=== PATIENT | male | born 1970 | race Caucasian/White ===

== ENCOUNTER 2016-11-01 20:23 | Observation (INO) | payer SELFPAY ==
[~2016-11-01] VITALS: Ht 170.2 cm; Wt 69.0 kg
[2016-11-01 23:05] VITALS: BP 118/83; PULSE 81; RESP 18; TEMP 99.9; O2SAT 100
[2016-11-01] MEDS ORDERED: SODIUM CHLOR 0.9% 1000 ML INJ 1,000 ML IV SCH (23:43)
--- NOTE | 2016-11-01 23:43 | PD ---
HPI Chief Complaint: Abdominal Pain Time Seen by Provider: 23:28 Travel History International Travel<30 days: No Contact w/Intl Traveler<30days: No Traveled to known affect area: No History of Present Illness HPI The patient is a 46-year-old male who complains of bilateral lower abdominal pain for 2 days associated with some nausea, vomiting and diarrhea. He denies any blood in the stool or vomitus. He denies any fever. He still has his appendix and gallbladder. He last ate some soup and watermelon at 5 PM. He does have a history of a brain tumor and gets frequent headaches. He is new to the area and does not have a local primary care physician. He does not have any insurance. He denies any history of bowel problems. [facility] Social History Tobacco Use: No Allergies-Medications (Allergen,Severity, Reaction): Coded Allergies: Codeine (Verified Allergy, Severe, Hallucinations, 11/01/16) Contrast Media (Verified Allergy, Severe, Cardiac Arrest, 11/02/16) Reported Meds & Prescriptions Reported Meds & Active Scripts Active Percocet (Oxycodone-Acetaminophen) 5-325 mg Tab 1 Tab PO Q4H PRN Reported Oxycodone (Oxycodone HCl) 5 Mg Tab 5 Mg PO Q4H PRN Fluoxetine (Fluoxetine HCl) 20 Mg Cap 20 Mg PO DAILY Gabapentin 800 Mg Tab 800 Mg PO HS Lamotrigine 100 Mg Tab 100 Mg PO BID Review of Systems Except as stated in HPI: all other systems reviewed are Neg Physical Exam Narrative GENERAL: The patient is alert, oriented 3 and slight apparent distress with his eye lateral lower quadrant abdominal discomfort. His vital signs are normal except for temperature 99.9. The patient is anxious. SKIN: Warm and dry. No skin rash is seen. HEAD: Atraumatic. Normocephalic. EYES: Pupils equal and round. No scleral icterus. No injection or drainage. ENT: No nasal bleeding or discharge. Mucous membranes pink and moist. NECK: Trachea midline. No JVD. CARDIOVASCULAR: Regular rate and rhythm. No murmur appreciated. RESPIRATORY: No accessory muscle use. Clear to auscultation. Breath sounds equal bilaterally. GASTROINTESTINAL: Abdomen shows guarding in the bilateral lower quadrants, and bilateral lower quadrant tenderness, nondistended. Hepatic and splenic margins not palpable. MUSCULOSKELETAL: No obvious deformities. No clubbing. No cyanosis. No edema. NEUROLOGICAL: Awake and alert. No obvious cranial nerve deficits. Motor grossly within normal limits. Normal speech. PSYCHIATRIC: Appropriate mood and affect except that the patient is anxious; insight and judgment normal. Data Data Last Documented VS Vital Signs Date Time Temp Pulse Resp B/P Pulse Ox O2 Delivery O2 Flow Rate FiO2 11/01/16 23:05 99.9 81 18 118/83 100 Orders Complete Blood Count With Diff (11/01/16 23:43) Comprehensive Metabolic Panel (11/01/16 23:43) Lipase (11/01/16 23:43) Urinalysis - C+S If Indicated (11/01/16 23:43) Iv Access Insert/Monitor (11/01/16 23:43) Ecg Monitoring (11/01/16 23:43) Oximetry (11/01/16 23:43) Morphine Inj (Morphine Inj) (11/01/16 23:45) Ondansetron Inj (Zofran Inj) (11/01/16 23:45) Sodium Chlor 0.9% 1000 Ml Inj (Ns 1000 M (11/01/16 23:43) Sodium Chloride 0.9% Flush (Ns Flush) (11/01/16 23:45) Ct Abd/Pel W/O Iv Contrast (11/01/16 23:59) Hydromorphone Pf Inj (Dilaudid Pf Inj) (11/02/16 00:45) Ondansetron Inj (Zofran Inj) (11/02/16 00:45) Electrocardiogram (11/02/16 00:46) Prothrombin Time / Inr (Pt) (11/02/16 00:47) Act Partial Throm Time (Ptt) (11/02/16 00:47) Admit Order (Ed Use Only) (11/02/16 00:54) Labs Laboratory Tests Test 11/02/16 00:20 White Blood Count 20.3 TH/MM3 Red Blood Count 4.84 MIL/MM3 Hemoglobin 15.8 GM/DL Hematocrit 45.7 % Mean Corpuscular Volume 94.4 FL Mean Corpuscular Hemoglobin 32.5 PG Mean Corpuscular Hemoglobin 34.5 % Concent Red Cell Distribution Width 13.0 % Platelet Count 242 TH/MM3 Mean Platelet Volume 8.9 FL Neutrophils (%) (Auto) 77.9 % Lymphocytes (%) (Auto) 12.0 % Monocytes (%) (Auto) 7.5 % Eosinophils (%) (Auto) 0.1 % Basophils (%) (Auto) 2.5 % Neutrophils # (Auto) 15.9 TH/MM3 Lymphocytes # (Auto) 2.4 TH/MM3 Monocytes # (Auto) 1.5 TH/MM3 Eosinophils # (Auto) 0.0 TH/MM3 Basophils # (Auto) 0.5 TH/MM3 CBC Comment AUTO DIFF Differential Total Cells 100 Counted Neutrophils % (Manual) 69 % Band Neutrophils % 10 % Lymphocytes % 13 % Monocytes % 8 % Neutrophils # (Manual) 16.0 TH/MM3 Differential Comment FINAL DIFF MANUAL Platelet Estimate NORMAL Platelet Morphology Comment NORMAL Red Cell Morphology Comment NORMAL Prothrombin Time 11.2 SEC Prothromb Time International 1.0 RATIO Ratio Activated Partial 27.8 SEC Thromboplast Time Urine Color YELLOW Urine Turbidity CLEAR Urine pH 6.5 Urine Specific [place] 1.005 Urine Protein NEG mg/dL Urine Glucose (UA) NEG mg/dL Urine Ketones TRACE mg/dL Urine Occult Blood NEG Urine Nitrite NEG Urine Bilirubin NEG Urine Leukocyte Esterase TRACE Urine RBC 0-2 /hpf Urine WBC 0-2 /hpf Urine Squamous Epithelial 0-5 /hpf Cells Urine Bacteria NONE /hpf Microscopic Urinalysis Comment CULT NOT INDICATED Sodium Level 137 MEQ/L Potassium Level 3.4 MEQ/L Chloride Level 100 MEQ/L Carbon Dioxide Level 28.1 MEQ/L Anion Gap 9 MEQ/L Blood Urea Nitrogen 8 MG/DL Creatinine 0.99 MG/DL Estimat Glomerular Filtration 81 ML/MIN Rate Random Glucose 114 MG/DL Calcium Level 9.6 MG/DL Total Bilirubin 1.3 MG/DL Aspartate Amino Transf 13 U/L (AST/SGOT) Alanine Aminotransferase 32 U/L (ALT/SGPT) Alkaline Phosphatase 97 U/L Total Protein 7.9 GM/DL Albumin 4.0 GM/DL Lipase 69 U/L [facility] Medical Decision Making Medical Screen Exam Complete: Yes Emergency Medical Condition: Yes Medical Record Reviewed: Yes Interpretation(s) The EKG is normal with a normal sinus rhythm rate of 74. The CT abdomen/pelvis without IV contrast shows acute appendicitis without abscess formation. Differential Diagnosis Colitis, acute appendicitis, gastroenteritis, electrolyte disorder, diverticulitis, acute appendicitis with abscess formation Narrative Course The patient has acute appendicitis without abscess formation. Plan: The patient will be admitted to Dr. Siegel at [facility] in [facility]. Scripts Oxycodone-Acetaminophen (Percocet)5-325 mg Tab1 Tab PO Q4H PRN (PAIN) #20 TAB Ref 0 Prov:Kaz Siegel MD 11/02/16 Luis Sneed MD Nov 01, 2016 23:43
[2016-11-01] MEDS ORDERED: ONDANSETRON HCL 4 MG/2 ML VIAL IVP ONE (23:45)
[2016-11-01] MEDS ORDERED: SODIUM CHLORIDE 0.9% FLUSH 5 ML FLUSH IVF PRN (23:45)
[2016-11-01] MEDS ORDERED: MORPHINE SULFATE 4 MG/ML INJ IV PUSH ONE (23:45)
--- NOTE | 2016-11-02 00:32 | RADHPO ---
EXAM DATE/TIME: 11/02/2016 00:03 [place] COMPARISON: No previous studies available for comparison. INDICATIONS : Lower abdomen pain for two days. Evaluate appendix. ORAL CONTRAST: No oral contrast ingested. RADIATION DOSE: 8.90 CTDIvol (mGy) MEDICAL HISTORY : None SURGICAL HISTORY : None. ENCOUNTER: Initial ACUITY: 2 days PAIN SCALE: 8/10 LOCATION: Bilateral lower quadrant abdomen TECHNIQUE: Volumetric scanning of the abdomen and pelvis was performed. Using automated exposure control and ad justment of the mA and/or kV according to patient size, radiation dose was kept as low as reasonably achievable to obtain optimal diagnostic quality images. FINDINGS: Examination of the lung bases demonstrates no abnormality. No pleural fluid is identified. No pulmona ry nodules are present. The liver and spleen are normal in size and no focal defects are identified. The gallbladder and pancreas are unremarkable. No intrahepatic or extrahepatic ductal dilatation is s een. The adrenal glands and kidneys appear normal bilaterally. No hydronephrosis or mass lesions are identified. The appendix is markedly enlarged measuring 15 mm in thickness with extensive inflammator y changes characteristic of appendicitis. There is no evidence of abscess. Examination of the pelvis demonstrates no evidence of free fluid or pelvic mass. No abnormally enlarged inguinal or retroperito lydia lymph nodes are present. The bladder is unremarkable. CONCLUSION: 1. Findings of acute appendicitis without abscess. Kaz Villalobos MD on November 02, 2016 at 0:28 Board Certified Radiologist. This report was verified electronically.
[2016-11-02] MEDS ORDERED: ONDANSETRON HCL 4 MG/2 ML VIAL IV ONE ×2 (00:45→04:00)
[2016-11-02] MEDS ORDERED: HYDROmorphone HCL PF 1 MG/ML VIAL IVP ONE ×2 (00:45→04:00)
[2016-11-02 00:52] LABS: AUTOMATED NEUTROPHIL # 15.9 TH/MM3 (1.8-7.7); BASOPHIL # 0.5 TH/MM3 (0-0.2); BASOPHIL % 2.5 % (0.0-2.0); EOSINOPHIL % 0.1 % (0.0-4.0); HEMATOCRIT 45.7 % (39.0-51.0); LYMPHOCYTE # 2.4 TH/MM3 (1.0-4.8); MEAN CELL VOLUME 94.4 FL (80.0-100.0); MEAN CORPUSCULAR HEMOGLOBIN 32.5 PG (27.0-34.0); MEAN CORPUSCULAR HGB CONC 34.5 % (32.0-36.0); MONO % 7.5 % (0.0-8.0); NEUT % 77.9 % (16.0-70.0); PLATELET COUNT 242 TH/MM3 (150-450); RED BLOOD COUNT 4.84 MIL/MM3 (4.50-5.90); WHITE BLOOD COUNT 20.3 TH/MM3 (4.0-11.0)
[2016-11-02 00:54] LABS: HEMO FLAGS AUTO DIFF
[2016-11-02] MEDS ORDERED: FLUO20CA4 PO (01:02)
[2016-11-02] MEDS ORDERED: GABA800T PO (01:02)
[2016-11-02] MEDS ORDERED: OXYC-392 PO (01:02)
[2016-11-02] MEDS ORDERED: LAMO100T PO (01:02)
[2016-11-02 01:03] LABS: CHLORIDE 100 MEQ/L (98-107); POTASSIUM 3.4 MEQ/L (3.5-5.1); SODIUM (NA) 137 MEQ/L (136-145)
[2016-11-02 01:06] LABS: BLOOD, URINE NEG (NEG); GLUCOSE,URINE NEG (NEG); KETONE, URINE TRACE mg/dL (NEG); NITRITE,URINE NEG (NEG); PH, URINE 6.5 (5.0-8.5)
[2016-11-02 01:07] LABS: ANION GAP 9 MEQ/L (5-15); BICARBONATE 28.1 MEQ/L (21.0-32.0); BLOOD UREA NITROGEN 8 MG/DL (7-18)
[2016-11-02 01:10] LABS: ALT (GPT) 32 U/L (12-78); AST (GOT) 13 U/L (15-37); GLOMERULAR FILTRATION RATE 81 ML/MIN (>89)
[2016-11-02 01:11] LABS: BANDS 10 % (0-6); POLYS (SEG NEUTROPHILS) 69 % (16-70); TOTAL BILIRUBIN ADULT 1.3 MG/DL (0.2-1.0); WBC DIFF SAMPLE 100
[2016-11-02 01:12] LABS: ALKALINE PHOSPHATASE 97 U/L (45-117); PLATELET ESTIMATE SMEAR NORMAL (NORMAL); PLATELET MORPHOLOGY NORMAL (NORMAL); SCAN/DIFF FINAL DIFF MANUAL
[2016-11-02] MEDS ORDERED: metroNIDAZOLE 500 MG INJ 100 ML IV ONE (01:15)
[2016-11-02] MEDS ORDERED: LEVOFLOXACIN 750 MG PREMIX INJ 150 ML IV ONE (01:15)
[2016-11-02 01:19] LABS: COMMENT (UR) CULT NOT INDICATED; CULTURE IF INDICATED CULT NOT INDICATED; RBC, URINE 0-2 /hpf (0-3); SQUAMOUS EPITHELIAL CELL URINE 0-5 /hpf (0-5); URINE COLOR YELLOW (YELLW/STRAW); WBC, URINE 0-2 /hpf (0-5)
[2016-11-02 01:29] LABS: APTT (PATIENT) 27.8 SEC (24.3-30.1); PROTHROMBIN TIME - PATIENT 11.2 SEC (9.8-11.6)
[2016-11-02 02:15] VITALS: BP 118/74; PULSE 88; RESP 16; O2SAT 99
[2016-11-02] MEDS ORDERED: ceFAZolin INJ 1,000 MG VIAL ONE (06:19)
[2016-11-02] MEDS ORDERED: FAMOTIDINE 20 MG/2 ML VIAL ONE (06:58)
[2016-11-02] MEDS ORDERED: MIDAZOLAM HCL 2 MG/2 ML VIAL ONE ×2 (06:58→15:13)
[2016-11-02] MEDS ORDERED: DEXAMETHASONE SOD PHOS 4 MG/ML VIAL ONE (06:59)
--- NOTE | 2016-11-02 07:00 | MH ---
cc: SARA MONTAÑO M.D. DATE OF ADMISSION 11/02/2016 REASON FOR ADMISSION Acute appendicitis. 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 He presented to the emergency room with a 3-day history of abdominal pain, some nausea and vomiting, decreased appetite. The patient's pain started on Sunday. He had cooked a meal for friends, thought he had food poisoning and then thought he had gas and when it would not resolve and his very high pain tolerance was being tested, he decide to come to the emergency department. He underwent evaluation by Dr. Sneed of [facility] and was found to have acute appendicitis. ALLERGIES THE PATIENT HAS AN ALLERGY TO CODEINE WHICH CAUSES SEVERE HALLUCINATIONS, IV CONTRAST MEDIA IS ALSO AN ALLERGY. MEDICATIONS His routine medications include: 1. Oxycodone 2. Fluoxetine 3. Gabapentin 4. Lamotrigine PAST SURGICAL HISTORY His previous surgery included: 1. A right craniotomy for the malignant brain tumor. 2. He also has again resulted in seizures. FAMILY HISTORY His family history is significant for carcinoid syndrome in his mother and also heart disease on his mother's side. SOCIAL HISTORY He is a nonsmoker. He does drink alcohol. He denies IV drug abuse. Denies HIV or hepatitis risk factors. REVIEW OF SYSTEMS He denies unusual bleeding tendencies. He does wear corrective lenses for his vision. 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 He denies swallowing disorders. No problems with his lungs like asthma, bronchitis, or pneumonia. No history of heart disease, heart attack, chest pain, irregular heartbeat or heart murmur. Denies chronic acid reflux disease, constipation, diarrhea, blood in urine or stool liver, kidney problems. No history of strokes. No history of diabetes, thyroid gland problems, blood clots or need for blood thinning medications. PHYSICAL EXAM On physical exam, this is a well-developed, nourished man in no acute distress, very pleasant and cooperative with the exam. He complains of abdominal pain. VITAL SIGNS: T-max of 99.9, last temperature 98.4, pulse 90, respiratory 20, blood pressure 122/80, oxygen saturation 96-100% on room air. HEENT: Normocephalic, atraumatic. He has a well-healed scar on the right lateral scalp. His pupils are 2-3 and sluggishly reactive to light. They are round and sclerae are anicteric. Oropharynx is clear. He has got a small hard palate marcello. NECK: His neck is supple without adenopathy. He has a midline trachea. No jugular venous distension. LUNGS: Lung sounds are clear and equal anteriorly bilaterally. HEART: Heart sounds regular without obvious murmur, rub or gallop. ABDOMEN: Soft. It is tender just to percussion. There are no scars. There are no hernias. He has normal bowel sounds. GENITAL AND RECTAL: His Genital/rectal exams are deferred. EXTREMITIES: His extremities show no cyanosis, clubbing or edema. He has equal radial and dorsalis pedis pulses. NEUROLOGIC: He is awake, alert and oriented with equal bilateral small business consultant strength and no gross motor or sensory deficit. No seizure activity was witnessed by me. LABS Labs show a white count of 20,300 with 77.9% neutrophils. Hemoglobin is 15.8, platelet count is 242. Potassium is 34, creatinine 0.99, total bilirubin was 1.3, lipase is 69. Coagulation studies are normal. Urinalysis is negative for infection. His CT scan of the abdomen and pelvis demonstrates severe inflammatory change the right lower quadrant with appendicolith consistent with acute appendicitis without abscess. There is no free fluid. ASSESSMENT This is a 46-year-old man with a history of brain tumor resected 20 years ago with subsequent seizure history. He has developed abdominal pain, nausea, vomiting, decreased appetite, elevated white count with left shift and CT findings consistent with acute appendicitis. RECOMMENDATIONS Recommendations were made for laparoscopic appendectomy, possible open surgery. The procedure in detail, plus risks of bleeding, infection injury to intra-abdominal contents including bowel, ureter, bladder, possible open surgery, DVT, pulmonary embolus, and expectations for recovery were reviewed in detail with the patient. He understands and wishes to proceed. The operating room is anticipating his arrival very shortly. MD PABLO Coffey/LUIS DANIEL /6:39 AM /6:49 AM
[2016-11-02] MEDS ORDERED: ACETAMINOPHEN 1000 MG/100 ML VIAL IV ONE (07:09)
[2016-11-02] MEDS ORDERED: BUPIVACAINE/EPINEPHRINE 0.25% PF 30 ML VIAL INFIL ONE (07:26)
[2016-11-02] MEDS ORDERED: INSULIN HUMAN REGULAR 1,000 UNITS/10 ML VIAL SQ PRN (07:30)
[2016-11-02] MEDS ORDERED: METOPROLOL TARTRATE 25 MG TAB PO PRN (07:30)
[2016-11-02] MEDS ORDERED: LACTATED RINGER'S 1000 ML IV SCH (07:30)
[2016-11-02] MEDS ORDERED: SODIUM CHLORID 0.9% 500 ML IV SCH (07:30)
--- NOTE | 2016-11-02 08:08 | PD.OP ---
Operative Report Date of Surgery: Nov 02, 2016 Preoperative Diagnosis: acute appendicitis Postoperative Diagnosis: same Procedure: lap appendectomy Anesthesia: general Surgeon: Kaz Siegel Subwarehouse Supervisor(s): staff Operation and Findings: inflammed appendix laying posterior to terminal ileum. EBL less than 20 ml. Appendix to pathology. Kaz Siegel MD Nov 02, 2016 08:08
[2016-11-02] MEDS ORDERED: LACTATED RINGER'S 1000 ML INJ 1,000 ML IV SCH (08:13)
[2016-11-02] MEDS ORDERED: ONDANSETRON HCL 4 MG/2 ML VIAL IV PRN (08:15)
[2016-11-02] MEDS ORDERED: oxyCODONE/ACETAMINOPHEN 5 MG/325 MG TAB PO PRN ×2 (08:15)
[2016-11-02] MEDS ORDERED: Post-op Orders (for Pharmacy) MISC XX ONE (08:15)
[2016-11-02] MEDS ORDERED: MAGNESIUM HYDROXIDE SUSP 30 ML CUP PO PRN (08:15)
[2016-11-02] MEDS ORDERED: SODIUM CHLORIDE 0.9% FLUSH 5 ML FLUSH IVF PRN (08:15)
[2016-11-02] MEDS ORDERED: PERC5TAB12 PO (08:18)
--- NOTE | 2016-11-02 08:36 | EKG ---
Date Performed: 11/02/2016 Time Performed: 00:48:22 PTAGE: 46 years EKG: Sinus rhythm Normal ECG NO PREVIOUS TRACING DOCTOR: Adrian Nugent Interpretating Date/Time 11/02/2016 08:33:51
[2016-11-02] MEDS ORDERED: DOCUSATE SODIUM 100 MG CAP PO SCH (09:00)
[2016-11-02] MEDS ORDERED: SODIUM CHLORIDE 0.9% FLUSH 5 ML FLUSH IVF SCH (09:00)
[2016-11-02] MEDS ORDERED: MORPHINE SULFATE 4 MG/ML INJ IV PUSH PRN (09:00)
[2016-11-02] MEDS: metroNIDAZOLE 500 MG INJ 100 ML IV SCH ×2 (10:00→10:24)
[2016-11-02] MEDS: KETOROLAC TROMETHAMINE 30 MG/ML (IVP) VIAL IV PUSH SCH ×2 (10:00→10:20)
[2016-11-02] MEDS ORDERED: NEOSTIGMINE METHYLSULFATE 10 MG/10 ML VIAL IV PUSH ONE (12:00)
[2016-11-02] MEDS ORDERED: ONDANSETRON HCL 4 MG/2 ML VIAL IV PUSH ONE (12:00)
[2016-11-02] MEDS ORDERED: KETOROLAC TROMETHAMINE 60 MG/2 ML (IM) VIAL IM ONE (12:00)
[2016-11-02] MEDS ORDERED: PROPOFOL 200 MG/20 ML AMP IV ONE (12:00)
[2016-11-02] MEDS ORDERED: ACETAMINOPHEN 1000 MG/100 ML VIAL IV SCH (13:00)
[2016-11-02 15:00] VITALS: BP 97/59; PULSE 68; RESP 16; TEMP 98.2; O2SAT 97
[2016-11-02] MEDS ORDERED: fentaNYL CITRATE 250 MCG/5 ML AMP ONE (15:14)
[2016-11-03] MEDS ORDERED: ENOXAPARIN SODIUM 30 MG/0.3 ML SYRINGE SQ SCH (07:00)
--- NOTE | 2016-11-03 08:04 | MP ---
cc: SARA MONTAÑO M.D. DATE OF SURGERY: 11/02/2016 PREOPERATIVE DIAGNOSIS Acute appendicitis. POSTOPERATIVE DIAGNOSIS Acute appendicitis. PROCEDURE Laparoscopic appendectomy. SURGEON Dr. Sara Montaño ANESTHESIA General. INDICATIONS This is a very pleasant 46-year-old gentleman with a history of malignant brain tumor removed 20 years ago, who developed over the last 2-3 days increasing abdominal pain, nausea with emesis and decreased appetite and chills. Workup demonstrated elevated white count and CT findings consistent with acute appendicitis. Plans are made for surgical intervention. INTRAOPERATIVE FINDINGS Inflamed appendix laying posterior to the terminal ileum. Estimated blood loss less than 20 mL. Appendix removed and sent to pathology. DESCRIPTION OF PROCEDURE IN DETAIL The patient was identified as Adrian Torres, taken to the operating room and placed in supine position. Sequential compression devices were placed on bilateral lower extremities. Following induction of adequate general endotracheal anesthesia the patient's abdomen was prepped and draped in the usual sterile fashion with Betadine. A timeout procedure was performed. Following completion of the timeout procedure to everyone's satisfaction within the room, 0.25% Marcaine with epinephrine was placed at each incision site. A supraumbilical 2-3 cm transverse incision was carried out with a scalpel and dissection continued posteriorly to the base of the umbilicus at the level of the supraumbilical fascia. This was retracted anteriorly with a Jf clamp and the supraumbilical fascia incised in a vertical fashion using a scalpel. Entry into the peritoneal cavity was facilitated with the surgeon's finger and the [employer] balloon Gabrielle trocar was placed in the peritoneal cavity and its balloon inflated with CO2 insufflation until the level of 15 mmHg ensued. The patient was placed in slight Trendelenburg position turned to the left. Two infraumbilical midline 5 mm trocars were then placed in the peritoneal cavity under direct laparoscopic view after incision of the skin with a scalpel. Attention was turned to identification of the appendix. In the right lower quadrant the cecum was adherent with adhesions to the anterior abdominal wall which were taken down using the Harmonic scalpel. This allowed for mobilization of the terminal ileum off an obviously inflamed appendix. The appendiceal mesentery was taken down with the Harmonic scalpel to the base of the appendix at the level of the cecum. A 0-PDS Endoloop was placed across the base of the appendix at the level of the cecum. The appendix was amputated distal to this, placed into an Endo retriever bag and removed through the supraumbilical fascial port incision site and passed off the field for pathologic evaluation. The right lower quadrant was then irrigated copiously with saline. A small amount of ooze where the mesentery was divided was controlled with Harmonic scalpel and a small piece of Surgicel SNoW. The pelvis was copiously irrigated out with saline. There was some murky greenish tinted fluid there which was completely removed. A brief survey of the remainder of the intra-abdominal contents demonstrated no obvious abnormality. Some suction and irrigation over the surface of the liver was performed as well. The Surgicel SNoW was removed. There was no evidence of continued ooze at the appendiceal mesentery site. Everything appeared hemostatic. The ligature at the base of the appendix remained intact. The remaining local anesthetic was placed in the right lower quadrant. The trocars were removed under direct visualization. There was no evidence of bleeding from the trocar sites. The abdomen was desufflated through the supraumbilical port which was then removed. The supraumbilical fascial incision was closed with interrupted 0 Vicryl sutures. The port sites were copiously irrigated with saline and skin incisions were approximated with 4-0 Monocryl subcuticular sutures. Dressings were applied with Mastisol and half-inch brown Steri-Strips. The patient tolerated the procedure without apparent complication. Sponge, needle and instrument counts were correct at the end of the case. MD PABLO Coffey/SEB /8:11 AM /7:53 AM
== END 2016-11-02 15:19 | disposition home or self-care (01) ==
LOC: PHED 20:23 → PHEDA 11-02 00:58 → HSDI 11-02 05:38
PROVIDERS: ADMIT Surgery Trauma Surgery; ATTEND Surgery Trauma Surgery
DX: K35.80 Unspecified acute appendicitis (principal); Z85.841 Personal history of malignant neoplasm of brain; Z01.810 Encounter for preprocedural cardiovascular examination
CPT/HCPCS: 00840; 44970; 74176; 80053; 81001; 83690; 85007; 85027; 85610; 85730; 88304; 93005; 96361; 96374; 96375; 99285; G0378; J0131; J0690; J1100; J1170; J1885; J1956; J2250; J2270; J2405; J2710; J3010; J7030; J7120